=== PATIENT | female | born 1955 | race Asian ===

== ENCOUNTER 2023-01-28 12:09 | Outpatient (CLI) | payer MEDICARE, OTHER ==
--- NOTE | 2023-01-28 17:57 | DEXA Report ---
PROCEDURE: Dexa Spine and/or Hip INDICATIONS: POST MENOPAUSAL TECHNIQUE: Dual energy x-ray absorptiometry (DXA) was performed on a katena System. Regions measur ed are the AP Spine, femoral neck, and if needed forearm. COMPARISON: None FINDINGS: Lumbar Spine: Bone Mineral Density 1.324 g/cm/cm,T score 1.2. Normal. Left Femoral Neck: Bone Mineral Density 0.957 g/cm/cm, T score -0.6. Normal. Left Hip: Bone Mineral Density 1.018 g/cm/cm,T score 0.1. Normal. (T score greater or equal to -1.0: NORMAL) (T score from -1.1 to -2.4: OSTEOPENIA) (T score less than or equal to -2.5 to: OSTEOPOROSIS) Impression: By WHO criteria, this patient has normal bone density. Patients with diagnosis of osteoporosis or osteopenia should have regular bone mineral density assess ment. For those eligible for Medicare, routine testing is allowed once every 2 years. Testing frequ ency can be increased for patients who have rapidly progressing disease or for those who are receivin g medical therapy to restore bone mass. Reviewed by: Denis Vegas MD on 01/28/2023 5:56 PM PDT Approved by: Denis Vegas MD on 01/28/2023 5:56 PM PDT Station ID: [id number]
== END 2023-01-28 12:10 | disposition home or self-care (01) ==
LOC: DI 12:09
PROVIDERS: ATTEND Physician Assistant
DX: Z78.0 Asymptomatic menopausal state (principal); N95.8 Other specified menopausal and perimenopausal disorders